=== PATIENT | female | born 1970 | race Two or more races ===

== ENCOUNTER → 2018-12-11 | Emergency (ER) | payer OTHER ==
[~2018-12-11] VITALS: Ht 157.5 cm; Wt 93.0 kg
[~2018-12-11] MED LIST: AMOX1TAB12 PO; CARAFATE1 G PO; CIPRO250 MG PO; COZAAR50 MG PO; GLUCOPHAGE XR500 MG PO; MEDROLPACK PO; NORVASC10 MG PO; PREDNISONE; PROVENTIL0.5 ML/2.5 IH; TUSSI PRES-B L120 M1 PO
== END | disposition left against medical advice (07) ==
LOC: ER 19:13
DX: Z53.20 Procedure and treatment not carried out because of patient's decision for unspecified reasons (principal)

== ENCOUNTER 2018-12-25 10:24 | Emergency (ER) | payer OTHER ==
[~2018-12-25] VITALS: Ht 167.6 cm; Wt 114.3 kg
== END 2018-12-25 14:14 | disposition home or self-care (01) ==
LOC: ER 10:24
DX: R42 Dizziness and giddiness (principal); R07.89 Other chest pain

== ENCOUNTER 2019-03-19 15:25 | Emergency (ER) | payer OTHER ==
[~2019-03-19] VITALS: Ht 167.6 cm; Wt 120.2 kg
[2019-03-19] MEDS ORDERED: ASPIRIN81 M1 (15:44)
== END 2019-03-19 19:36 | disposition home or self-care (01) ==
LOC: ER 15:25
DX: K52.9 Noninfective gastroenteritis and colitis, unspecified (principal); R10.11 Right upper quadrant pain

== ENCOUNTER 2019-05-29 11:33 | Outpatient (CLI) | payer OTHER ==
[~2019-05-29 11:33] MED LIST changes: +ASPIRIN81 M1
== END 2019-05-29 11:38 | disposition home or self-care (01) ==
LOC: MRI 11:33
DX: K50.80 Crohn's disease of both small and large intestine without complications (principal); R16.1 Splenomegaly, not elsewhere classified
CPT/HCPCS: 74181

== ENCOUNTER 2019-06-26 12:27 | Emergency (ER) | payer OTHER ==
[~2019-06-26] VITALS: Ht 167.6 cm; Wt 121.6 kg
[2019-06-26] MEDS ORDERED: VALSARTAN40 MG (13:02)
[2019-06-26] MEDS ORDERED: ULTRACET PO (14:55)
== END 2019-06-26 15:12 | disposition home or self-care (01) ==
LOC: ER 12:27
DX: R10.84 Generalized abdominal pain (principal)

== ENCOUNTER 2019-10-18 15:32 | Emergency (ER) | payer OTHER ==
[~2019-10-18] VITALS: Ht 167.6 cm; Wt 120.2 kg
[~2019-10-18 15:32] MED LIST changes: +ULTRACET PO; +VALSARTAN40 MG
[2019-10-18] MEDS ORDERED: XARELTO1 EACH (16:17)
== END 2019-10-18 20:05 | disposition home or self-care (01) ==
LOC: ER 15:32
DX: K52.9 Noninfective gastroenteritis and colitis, unspecified (principal)

== ENCOUNTER 2019-11-16 11:00 | Emergency (ER) | payer OTHER ==
[~2019-11-16] VITALS: Ht 170.2 cm; Wt 113.4 kg
[~2019-11-16 11:00] MED LIST changes: +XARELTO1 EACH
== END 2019-11-16 12:07 | disposition home or self-care (01) ==
LOC: ER 11:00
DX: J06.9 Acute upper respiratory infection, unspecified (principal)

== ENCOUNTER 2020-03-02 13:53 | Outpatient (CLI) | payer OTHER | END 2020-03-02 13:57 | disposition home or self-care (01) | LOC: RAD 13:53 | PROVIDERS: ATTEND General Practice | DX: R05 Cough (principal); R51 Headache; R53.81 Other malaise; I10 Essential (primary) hypertension; Z11.59 Encounter for screening for other viral diseases ==

== ENCOUNTER 2020-03-02 14:40 | Outpatient (CLI) | payer OTHER | END 2020-03-02 15:00 | disposition home or self-care (01) | LOC: LAB 14:40 | PROVIDERS: ATTEND General Practice | DX: U07.1 COVID-19 (principal); J11.1 Influenza due to unidentified influenza virus with other respiratory manifestations; R51 Headache; R53.81 Other malaise; Z11.59 Encounter for screening for other viral diseases ==

== ENCOUNTER 2020-10-14 08:35 | Outpatient (CLI) | payer OTHER | END 2020-10-14 08:55 | disposition home or self-care (01) | LOC: TOM 08:35 | PROVIDERS: ATTEND Internal Medicine Hematology & Oncology | DX: I81 Portal vein thrombosis (principal); I87.2 Venous insufficiency (chronic) (peripheral) ==

== ENCOUNTER 2021-07-12 10:22 | Emergency (ER) | payer OTHER ==
[~2021-07-12] VITALS: Ht 167.6 cm; Wt 122.5 kg
[2021-07-12] MEDS ORDERED: 8 HOUR650 MG PO (17:31)
[2021-07-12] MEDS ORDERED: CIPROFLOXACIN500 MG PO (17:31)
[2021-07-12] MEDS ORDERED: INTESTINEX680 M1 PO (17:31)
[2021-07-12] MEDS ORDERED: LEVSIN0.125 MG PO (17:31)
[2021-07-12] MEDS ORDERED: PROTONIX20 MG PO (17:31)
[2021-07-12] MEDS ORDERED: PEPCID AC20 MG PO (17:31)
[2021-07-12] MEDS ORDERED: METRONIDAZOLE500 MG PO (17:31)
== END 2021-07-12 17:35 | disposition home or self-care (01) ==
LOC: ER 10:22
DX: K57.92 Diverticulitis of intestine, part unspecified, without perforation or abscess without bleeding (principal); R10.9 Unspecified abdominal pain

== ENCOUNTER 2022-02-23 09:59 | Emergency (ER) | payer OTHER ==
[~2022-02-23] VITALS: Ht 167.6 cm; Wt 123.4 kg
[~2022-02-23 09:59] MED LIST changes: +8 HOUR650 MG PO; +CIPROFLOXACIN500 MG PO; +INTESTINEX680 M1 PO; +LEVSIN0.125 MG PO; +METRONIDAZOLE500 MG PO; +PEPCID AC20 MG PO; +PROTONIX20 MG PO
[2022-02-23] MEDS ORDERED: IPRAT-ALBUT 0.5-3 ML IH (15:54)
[2022-02-23] MEDS ORDERED: PEPCID AC20 MG PO (15:54)
[2022-02-23] MEDS ORDERED: BENZONATATE200 M1 PO (15:54)
[2022-02-23] MEDS ORDERED: OSEL75CA PO (15:54)
[2022-02-23] MEDS ORDERED: BUDESONIDE0.5 MG/2 M IH (15:54)
[2022-02-23] MEDS ORDERED: MOLNUPIRAVIR (200 MG PO ×2 (15:54→15:55)
== END 2022-02-23 16:27 ==
LOC: ER 09:59
DX: U07.1 COVID-19 (principal); J45.901 Unspecified asthma with (acute) exacerbation; J10.1 Influenza due to other identified influenza virus with other respiratory manifestations; Z91.013 Allergy to seafood

== ENCOUNTER 2022-02-23 16:46 | Outpatient (CLI) | payer OTHER ==
[~2022-02-23 16:46] MED LIST changes: +BENZONATATE200 M1 PO; +BUDESONIDE0.5 MG/2 M IH; +IPRAT-ALBUT 0.5-3 ML IH; +MOLNUPIRAVIR (200 MG PO; +OSEL75CA PO
== END 2022-02-23 17:46 | disposition home or self-care (01) ==
LOC: ASH CLINIC 16:46
PROVIDERS: ATTEND General Practice
DX: U07.1 COVID-19 (principal)

== ENCOUNTER 2022-06-08 13:20 | Emergency (ER) | payer OTHER ==
[~2022-06-08] VITALS: Ht 167.6 cm; Wt 123.4 kg
== END 2022-06-08 18:02 | disposition left against medical advice (07) ==
LOC: ER 13:20
DX: K57.32 Diverticulitis of large intestine without perforation or abscess without bleeding (principal); E11.9 Type 2 diabetes mellitus without complications; Z79.84 Long term (current) use of oral hypoglycemic drugs; Z91.013 Allergy to seafood

== ENCOUNTER 2022-08-01 10:38 | Emergency (ER) | payer OTHER ==
[~2022-08-01] VITALS: Ht 167.6 cm; Wt 123.4 kg
[2022-08-01] MEDS ORDERED: KETO10TA2 PO (11:52)
[2022-08-01] MEDS ORDERED: NORFLEX100MG PO (11:52)
[2022-08-01] MEDS ORDERED: CIPRO500 MG PO (13:26)
[2022-08-01] MEDS ORDERED: OSEL75CA PO (13:26)
[2022-08-01] MEDS ORDERED: CLARITIN10 M1 PO (13:26)
[2022-08-01] MEDS ORDERED: PANTOPRAZOLE SO40 MG PO (13:26)
== END 2022-08-01 13:29 | disposition home or self-care (01) ==
LOC: ER 10:38
DX: J10.1 Influenza due to other identified influenza virus with other respiratory manifestations (principal); Z20.828 Contact with and (suspected) exposure to other viral communicable diseases

== ENCOUNTER 2022-09-08 15:49 | Emergency (ER) | payer OTHER ==
[~2022-09-08] VITALS: Ht 170.2 cm; Wt 111.1 kg
[~2022-09-08 15:49] MED LIST changes: +CIPRO500 MG PO; +CLARITIN10 M1 PO; +KETO10TA2 PO; +NORFLEX100MG PO; +PANTOPRAZOLE SO40 MG PO
[2022-09-08] MEDS ORDERED: AUGMENTIN XR 11 EACH PO (21:56)
== END 2022-09-08 22:21 | disposition home or self-care (01) ==
LOC: ER 15:49
DX: K57.92 Diverticulitis of intestine, part unspecified, without perforation or abscess without bleeding (principal); Z87.19 Personal history of other diseases of the digestive system; Z91.013 Allergy to seafood

== ENCOUNTER 2022-12-30 11:49 | Emergency (ER) | payer OTHER ==
[~2022-12-30] VITALS: Ht 167.6 cm; Wt 123.4 kg
[~2022-12-30 11:49] MED LIST changes: +AUGMENTIN XR 11 EACH PO
[2022-12-30] MEDS ORDERED: PRILOSEC OTC20 MG (12:37)
[2022-12-30] MEDS ORDERED: CIPRO500 MG PO (18:48)
[2022-12-30] MEDS ORDERED: PEPCID AC20 MG PO (18:48)
[2022-12-30] MEDS ORDERED: METRONIDAZOLE500 MG PO (18:48)
== END 2022-12-30 19:55 | disposition home or self-care (01) ==
LOC: ER 11:49
DX: R10.9 Unspecified abdominal pain (principal); K62.5 Hemorrhage of anus and rectum; K21.9 Gastro-esophageal reflux disease without esophagitis; I10 Essential (primary) hypertension; K57.32 Diverticulitis of large intestine without perforation or abscess without bleeding

== ENCOUNTER 2023-09-24 16:28 | Emergency (ER) | payer OTHER ==
[~2023-09-24] VITALS: Ht 167.6 cm; Wt 124.7 kg
[~2023-09-24 16:28] MED LIST changes: +PRILOSEC OTC20 MG
[2023-09-24] MEDS ORDERED: AMLODIPINE BESY10 MG (16:38)
[2023-09-24 18:53] LABS: HEMATOCRIT 36.5 % (36.0-45.00); HEMOGLOBIN 11.7 g/dL (12.0-15.00); MEAN CELL VOLUME 78.7 fL (80.00-100.00); MEAN CORPUSCULAR HEMOGLOBIN 25.3 pg (27.00-32.0); MEAN CORPUSCULAR HGB CONC 32.2 g/dl (32.0-36.0); PLATELET COUNT 588 K/uL (150-450); RED BLOOD COUNT 4.64 M/uL (4.00-6.00); RED CELL DISTRIBUTION WIDTH 17.5 % (11.5-14.5)
[2023-09-24 19:02] LABS: INR 1.36; PARTIAL THROMBOPLASTIN TIME 27.9 SECONDS (22.0-34.0)
[2023-09-24 19:03] LABS: CALCIUM 9.6 mg/dL (8.5-10.1); CREATININE SERUM 0.66 mg/dL (0.55-1.02); GFR 94.42; POTASSIUM 3.89 mEq/L (3.5-5.1)
== END 2023-09-24 21:09 | disposition left against medical advice (07) ==
LOC: ER 16:29
PROVIDERS: General Practice
DX: S09.8XXA Other specified injuries of head, initial encounter (principal); W18.39XA Other fall on same level, initial encounter; Y93.89 Activity, other specified; Y92.018 Other place in single-family (private) house as the place of occurrence of the external cause; Z91.013 Allergy to seafood; Z20.822 Contact with and (suspected) exposure to COVID-19; J32.9 Chronic sinusitis, unspecified; E11.9 Type 2 diabetes mellitus without complications; Z86.718 Personal history of other venous thrombosis and embolism
CPT/HCPCS: 36415; 70450; 72125; 99284; J2360

== ENCOUNTER 2023-10-16 10:27 | Outpatient (CLI) | payer OTHER ==
[~2023-10-16 10:27] MED LIST changes: +AMLODIPINE BESY10 MG
== END 2023-10-16 10:38 | disposition home or self-care (01) ==
LOC: TOM 10:27
PROVIDERS: ATTEND Internal Medicine Gastroenterology
DX: R10.31 Right lower quadrant pain (principal)

== ENCOUNTER 2023-12-15 11:52 | Emergency (ER) | payer OTHER ==
[~2023-12-15] VITALS: Ht 167.6 cm; Wt 125.2 kg
[2023-12-15] MEDS ORDERED: PEPCID AC20 MG PO ×2 (12:10→19:21)
[2023-12-15] MEDS ORDERED: 0.9 % SODIUM CHLORIDE 1,000 ML IV STA (12:32)
[2023-12-15] MEDS ORDERED: KETOROLAC TROMETHAMINE 30 MG VIAL IV ONE (12:45)
[2023-12-15 13:04] LABS: HEMOGLOBIN 11.4 g/dL (12.0-15.00); MEAN CORPUSCULAR HEMOGLOBIN 25.1 pg (27.00-32.0); MEAN CORPUSCULAR HGB CONC 32.6 g/dl (32.0-36.0); PLATELET COUNT 679 K/uL (150-450); RED BLOOD COUNT 4.55 M/uL (4.00-6.00); RED CELL DISTRIBUTION WIDTH 18.2 % (11.5-14.5)
[2023-12-15 13:23] LABS: CALCIUM 9.6 mg/dL (8.5-10.1); CREATININE SERUM 0.86 mg/dL (0.55-1.02); GFR 69.56; POTASSIUM 3.7 mEq/L (3.5-5.1)
[2023-12-15 14:25] LABS: URINE APPEARANCE Cloudy; URINE BILIRRUBIN Negative (NEGATIVE); URINE BLOOD Large; URINE COLOR Dark Yellow; URINE GLUCOSE Negative (NEGATIVE); URINE LEUKOCYTE Small; URINE NITRATE Negative; URINE PROTEIN 30 (NEGATIVE)
[2023-12-15 14:26] LABS: URINE BACTERIA 404.4 uL (0.0-1933); URINE EPITHELIAL CELLS 37.8 uL (0.0-38.8); URINE RBC 6024.9 uL (0.0-20.8); URINE WBC 23.4 uL (0.0-23.2)
[2023-12-15] MEDS ORDERED: FAMOTIDINE/PF 20 MG in 0.9 % SODIUM CHLORIDE 8 ML IV PUSH STA (19:17)
[2023-12-15] MEDS ORDERED: CIPRO500 MG PO (19:21)
[2023-12-15] MEDS ORDERED: DICY20TA PO (19:21)
[2023-12-15] MEDS ORDERED: METRONIDAZOLE500 MG PO (19:21)
[2023-12-15] MEDS ORDERED: CEFTRIAXONE SODIUM 1,000 MG VIAL IV ONE (19:30)
== END 2023-12-15 19:51 | disposition home or self-care (01) ==
LOC: ER 11:52
PROVIDERS: Emergency Medicine
DX: I88.0 Nonspecific mesenteric lymphadenitis (principal); K52.9 Noninfective gastroenteritis and colitis, unspecified; Z91.013 Allergy to seafood
CPT/HCPCS: 36415; 74177; Q9965

== ENCOUNTER 2024-05-11 10:52 | Inpatient (IN) | payer OTHER ==
[~2024-05-11] VITALS: Ht 167.6 cm; Wt 122.5 kg
[~2024-05-11 10:52] MED LIST changes: +DICY20TA PO; +METFORMIN HCL500 M4 PO; +VALSARTAN-HCTZ1 EAC1 PO; +XARELTO20 MG
[2024-05-11] MEDS ORDERED: 0.9 % SODIUM CHLORIDE 1,000 ML IV ONE (11:45)
[2024-05-11] MEDS ORDERED: KETOROLAC TROMETHAMINE 60 MG VIAL IM ONE ×2 (11:45→12:04)
[2024-05-11] MEDS ORDERED: ONDANSETRON HCL 2 MG/ML VIAL IV ONE (11:45)
[2024-05-11] MEDS ORDERED: FAMOtidine 10 MG/ML (4ML VIAL) IV ONE (11:45)
[2024-05-11] MEDS ORDERED: FAMOTIDINE/PF 20 MG/2 ML VIAL ONE (12:04)
[2024-05-11] MEDS ORDERED: ONDANSETRON HCL 2 MG/ML VIAL ONE (12:04)
[2024-05-11 12:33] LABS: HEMATOCRIT 33.8 % (36.0-45.00); HEMOGLOBIN 11.1 g/dL (12.0-15.00); MEAN CELL VOLUME 74.3 fL (80.00-100.00); MEAN CORPUSCULAR HEMOGLOBIN 24.4 pg (27.00-32.0); MEAN CORPUSCULAR HGB CONC 32.8 g/dl (32.0-36.0); PLATELET COUNT 706 K/uL (150-450); RED BLOOD COUNT 4.55 M/uL (4.00-6.00); RED CELL DISTRIBUTION WIDTH 18.6 % (11.5-14.5)
[2024-05-11 12:46] LABS: URINE APPEARANCE Clear; URINE BILIRRUBIN Negative (NEGATIVE); URINE BLOOD Negative; URINE COLOR Yellow; URINE GLUCOSE Negative (NEGATIVE); URINE KETONE Trace (NEGATIVE); URINE LEUKOCYTE Negative; URINE NITRATE Negative; URINE PROTEIN Negative (NEGATIVE); URINE UROBILINOGEN 0.2 E.U./dl
[2024-05-11 12:49] LABS: URINE BACTERIA 361.5 uL (0.0-1933); URINE EPITHELIAL CELLS 38.2 uL (0.0-38.8); URINE RBC 18.1 uL (0.0-20.8); URINE WBC 4.3 uL (0.0-23.2)
[2024-05-11 13:06] LABS: INR 1.05; PARTIAL THROMBOPLASTIN TIME 25.5 SECONDS (22.0-34.0); PROTHROMBIN TIME 11.4 SECONDS (9.0-11.5)
[2024-05-11 13:17] LABS: ALBUMIN 3.6 gm/dL (3.4-5.0); BILIRUBIN TOTAL 0.96 mg/dL (0.3-1.2); CALCIUM 9.1 mg/dL (8.5-10.1); CREATININE SERUM 0.73 mg/dL (0.55-1.02); GFR 84.05; GLOBULINA 4.8 G/DL (2.4-3.5); POTASSIUM 3.61 mEq/L (3.5-5.1); TOTAL PROTEIN 8.4 gm/dL (6.4-8.2)
[2024-05-11] MEDS ORDERED: DEXTROSE 5 % AND 0.9 % NACL 1,000 ML IV SCH (19:45)
[2024-05-11] MEDS ORDERED: DEXTROSE 50 % IN WATER 0.5 G/ML DISP.SYRIN IV PRN (20:00)
[2024-05-11] MEDS ORDERED: PIPERACILLIN/TAZOBACTAM SODIUM 3.375 GM in 0.9 % SODIUM CHLORIDE 100 ML IV SCH (20:00)
[2024-05-11] MEDS ORDERED: ONDANSETRON HCL 4 MG in 0.9 % SODIUM CHLORIDE 50 ML IV PRN (20:00)
[2024-05-11] MEDS ORDERED: INSULIN LISPRO 1,000 UNIT/10 ML UNITS SUBCUTANEO PRN (20:00)
[2024-05-11] MEDS ORDERED: ACETAMINOPHEN 500 MG GEL..CAP PO PRN (20:00)
[2024-05-11] MEDS ORDERED: hydrALAZINE HCL 20 MG VIAL IV PRN (20:00)
[2024-05-11] MEDS ORDERED: FAMOTIDINE/PF 20 MG in 0.9 % SODIUM CHLORIDE 8 ML IV PUSH SCH (21:00)
[2024-05-12] MEDS ORDERED: MEPERIDINE HCL/PF 25 MG/ML VIAL IM SCH
[2024-05-12 00:28] VITALS: BP 107/69
[2024-05-12 01:42] VITALS: BP 107/69; O2SAT 97
[2024-05-12 04:16] VITALS: BP 135/68; O2SAT 98
[2024-05-12 08:00] VITALS: BP 122/81; O2SAT 96
[2024-05-12 08:40] LABS: HEMATOCRIT 32.8 % (36.0-45.00); HEMOGLOBIN 10.2 g/dL (12.0-15.00); MEAN CELL VOLUME 74.7 fL (80.00-100.00); MEAN CORPUSCULAR HEMOGLOBIN 23.3 pg (27.00-32.0); MEAN CORPUSCULAR HGB CONC 31.1 g/dl (32.0-36.0); PLATELET COUNT 684 K/uL (150-450); RED BLOOD COUNT 4.39 M/uL (4.00-6.00); RED CELL DISTRIBUTION WIDTH 18.5 % (11.5-14.5)
[2024-05-12 08:58] LABS: ALBUMIN 3.3 gm/dL (3.4-5.0); BILIRUBIN TOTAL 1.11 mg/dL (0.3-1.2); BILIRUBIN,CONJUGATED 0.2 mg/dL (0.0-0.2); BILIRUBIN,UNCONJUGATED 0.91 mg/dL (0.0-0.6); CALCIUM 8.9 mg/dL (8.5-10.1); CHOL HDL RATIO 3.8 (0-5.0); CREATININE SERUM 0.76 mg/dL (0.55-1.02); GFR 80.23; INR 1.02; PARTIAL THROMBOPLASTIN TIME 26.6 SECONDS (22.0-34.0); POTASSIUM 4.1 mEq/L (3.5-5.1); PROTHROMBIN TIME 11.1 SECONDS (9.0-11.5); TOTAL PROTEIN 7.3 gm/dL (6.4-8.2)
[2024-05-12 09:00] LABS: C-REACTIVE PROTEIN 1.27 MG/DL (0.00-0.29)
[2024-05-12] MEDS ORDERED: HCTZ 12.5 MG PO SCH (09:00)
[2024-05-12] MEDS ORDERED: RIVAROXABAN 20 MG TABLET PO SCH (09:00)
[2024-05-12] MEDS ORDERED: VALSARTAN 160 MG PO SCH (09:00)
[2024-05-12] MEDS ORDERED: AMLODIPINE BESYLATE 10 MG TABLET PO SCH (09:00)
[2024-05-12 10:16] LABS: ERYTHROCYTE SEDIMENTATION RATE 81 mm/hr
[2024-05-12 12:18] LABS: URINE APPEARANCE Clear; URINE BILIRRUBIN Negative (NEGATIVE); URINE BLOOD Negative; URINE COLOR Yellow; URINE GLUCOSE Negative (NEGATIVE); URINE KETONE Negative (NEGATIVE); URINE LEUKOCYTE Negative; URINE NITRATE Negative; URINE PROTEIN Negative (NEGATIVE); URINE UROBILINOGEN 0.2 E.U./dl
[2024-05-12 12:22] LABS: URINE BACTERIA 127.2 uL (0.0-1933); URINE EPITHELIAL CELLS 11.5 uL (0.0-38.8); URINE RBC 3.2 uL (0.0-20.8)
[2024-05-12 16:00] VITALS: BP 104/68; O2SAT 99
[2024-05-13 00:16] VITALS: BP 127/71; O2SAT 97
[2024-05-13 08:00] VITALS: BP 110/71; O2SAT 98
[2024-05-13] MEDS ORDERED: VALSARTAN HCTZ PO SCH (09:00)
[2024-05-13] MEDS ORDERED: SODIUM CL 0.9% 50 ML IV.SOLN IV ONE (11:00)
[2024-05-13 16:37] VITALS: BP 137/85; O2SAT 98
[2024-05-14] VITALS: BP 115/82; O2SAT 100
[2024-05-14 07:53] VITALS: BP 130/76; O2SAT 96
[2024-05-14 08:57] LABS: INR 1.04; PARTIAL THROMBOPLASTIN TIME 26.8 SECONDS (22.0-34.0); PROTHROMBIN TIME 11.3 SECONDS (9.0-11.5)
== END 2024-05-14 12:28 | disposition home or self-care (01) | DRG 391 ==
LOC: ER 10:54 → MEDJ 20:19 → SEC-K 20:19 → MEDJ 20:45 → SURH 05-12 02:47
PROVIDERS: General Practice; ADMIT Internal Medicine; ATTEND Internal Medicine
PROC: BW21YZZ Computerized Tomography (CT Scan) of Abdomen and Pelvis using Other Contrast (ICD-10-PCS; principal; 2024-05-11)
DX: K57.32 Diverticulitis of large intestine without perforation or abscess without bleeding (principal); I81 Portal vein thrombosis; I10 Essential (primary) hypertension; E11.9 Type 2 diabetes mellitus without complications; Z79.4 Long term (current) use of insulin

== ENCOUNTER 2024-05-14 11:00 | Inpatient (IN) | payer OTHER ==
[~2024-05-14] VITALS: Ht 167.6 cm; Wt 122.5 kg
[2024-05-14 14:50] VITALS: BP 150/54
[2024-05-22] MEDS ORDERED: METRONIDAZOLE/SODIUM CHLORIDE 500 MG/100 ML PIGGYBACK IV ONE (12:40)
[2024-05-22] MEDS ORDERED: CEFTRIAXONE SODIUM 2,000 MG VIAL ONE (12:40)
[2024-05-22] MEDS ORDERED: SUGAMMADEX SODIUM 200 MG/2 ML VIAL IV ONE (14:45)
[2024-05-22] MEDS ORDERED: LIDOCAINE HCL 1%/EPINEPHRINE 20ML VIAL IJ ONE (15:00)
[2024-05-22] MEDS ORDERED: BUPIVACAINE HCL 30 ML VIAL IJ ONE (15:00)
[2024-05-22] MEDS ORDERED: OxyCODONE HCL 5 MG TABLET (ROXICODONE) PO PRN (16:45)
[2024-05-22] MEDS ORDERED: MORPHINE SULFATE 4 MG/ML CARTRIDGE IV PRN (16:45)
[2024-05-22] MEDS ORDERED: ONDANSETRON HCL 2 MG/ML VIAL IV PRN (16:45)
[2024-05-22] MEDS ORDERED: DEXTROSE 50 % IN WATER 0.5 G/ML DISP.SYRIN IV PRN (16:45)
[2024-05-22] MEDS ORDERED: RINGERS SOLUTION,LACTATED 1,000 ML IV SCH (16:45)
[2024-05-22] MEDS ORDERED: ONDANSETRON HCL 2 MG/ML VIAL ONE (18:05)
[2024-05-22 19:00] VITALS: BP 153/82; O2SAT 96
[2024-05-22 19:24] LABS: HEMATOCRIT 32.7 % (36.0-45.00); HEMOGLOBIN 10.6 g/dL (12.0-15.00); MEAN CELL VOLUME 73.4 fL (80.00-100.00); MEAN CORPUSCULAR HEMOGLOBIN 23.8 pg (27.00-32.0); MEAN CORPUSCULAR HGB CONC 32.4 g/dl (32.0-36.0); PLATELET COUNT 750 K/uL (150-450); RED BLOOD COUNT 4.45 M/uL (4.00-6.00); RED CELL DISTRIBUTION WIDTH 18.7 % (11.5-14.5)
[2024-05-22 19:31] LABS: ALBUMIN 3.4 gm/dL (3.4-5.0); CALCIUM 9.2 mg/dL (8.5-10.1); CREATININE SERUM 0.77 mg/dL (0.55-1.02); GFR 79.03; PHOSPHOROUS 3.6 mg/dL (2.5-4.9); POTASSIUM 3.72 mEq/L (3.5-5.1)
[2024-05-22] MEDS ORDERED: ACETAMINOPHEN 500 MG GEL..CAP PO SCH (20:00)
[2024-05-22] MEDS ORDERED: CIPROFLOXACIN IN 5 % DEXTROSE 400 MG/200 ML PIGGYBAG IV SCH (21:00)
[2024-05-22] MEDS ORDERED: FAMOTIDINE/PF 20 MG/2 ML VIAL IV PUSH SCH (21:00)
[2024-05-22] MEDS ORDERED: CELECOXIB 200 MG CAPSULE PO SCH (21:00)
[2024-05-22 23:55] VITALS: BP 152/86; O2SAT 96
[2024-05-23] MEDS ORDERED: GABAPENTIN 300 MG CAPSULE PO SCH (01:00)
[2024-05-23] MEDS ORDERED: METRONIDAZOLE/SODIUM CHLORIDE 500 MG/100 ML PIGGYBACK IV SCH (01:00)
[2024-05-23 06:10] LABS: HEMATOCRIT 30.1 % (36.0-45.00); MEAN CELL VOLUME 74.1 fL (80.00-100.00); MEAN CORPUSCULAR HEMOGLOBIN 24.5 pg (27.00-32.0); MEAN CORPUSCULAR HGB CONC 33.1 g/dl (32.0-36.0); PLATELET COUNT 640 K/uL (150-450); RED BLOOD COUNT 4.06 M/uL (4.00-6.00); RED CELL DISTRIBUTION WIDTH 18.4 % (11.5-14.5)
[2024-05-23 06:39] LABS: CALCIUM 8.8 mg/dL (8.5-10.1); CREATININE SERUM 0.59 mg/dL (0.55-1.02); GFR 107.46; MAGNESIUM 2.2 mg/dL (1.8-2.4); PHOSPHOROUS 3.1 mg/dL (2.5-4.9); POTASSIUM 4.09 mEq/L (3.5-5.1)
[2024-05-23 08:38] VITALS: BP 147/81; O2SAT 96
[2024-05-23] MEDS ORDERED: LACTULOSE 20 G/30 ML BLIST.PACK PO SCH (09:00)
[2024-05-23] MEDS ORDERED: HYOSCYAMINE SULFATE 0.125 MG TAB.SUBL SL SCH (09:00)
[2024-05-23 16:50] VITALS: BP 100/61; O2SAT 98
[2024-05-23] MEDS ORDERED: POLYETHYLENE GLYCOL 3350 17 GM BLIST.PACK PO SCH (17:00)
[2024-05-23] MEDS ORDERED: ENOXAPARIN SODIUM 40 MG/0.4 ML SYRINGE SUBCUTANEO SCH (17:00)
[2024-05-24] VITALS: BP 99/64; O2SAT 96
[2024-05-24] MEDS ORDERED: ENOXAPARIN SODIUM 40 MG/0.4 ML SYRINGE SUBCUTANEO SCH (09:00)
[2024-05-24 09:23] VITALS: BP 107/71; O2SAT 97
[2024-05-24 16:02] VITALS: BP 108/73; O2SAT 98
[2024-05-25] VITALS: BP 147/76; O2SAT 96
[2024-05-25] MEDS ORDERED: OxyCODONE HCL 5 MG TABLET (ROXICODONE) PO PRN (02:00)
[2024-05-25 09:11] VITALS: BP 130/61; O2SAT 98
[2024-05-25 09:30] LABS: HEMATOCRIT 28.5 % (36.0-45.00); MEAN CELL VOLUME 73.9 fL (80.00-100.00); MEAN CORPUSCULAR HGB CONC 31.9 g/dl (32.0-36.0); RED BLOOD COUNT 3.86 M/uL (4.00-6.00); RED CELL DISTRIBUTION WIDTH 18.9 % (11.5-14.5)
[2024-05-25 09:32] LABS: HEMOGLOBIN 9.1 g/dL (12.0-15.00); MEAN CORPUSCULAR HEMOGLOBIN 23.5 pg (27.00-32.0); PLATELET COUNT 572 K/uL (150-450)
[2024-05-25 09:37] LABS: ALBUMIN 2.7 gm/dL (3.4-5.0); BILIRUBIN TOTAL 0.55 mg/dL (0.3-1.2); CALCIUM 8.3 mg/dL (8.5-10.1); CREATININE SERUM 0.54 mg/dL (0.55-1.02); GFR 119.02; GLOBULINA 3.6 G/DL (2.4-3.5); MAGNESIUM 2.2 mg/dL (1.8-2.4); PHOSPHOROUS 2.5 mg/dL (2.5-4.9); POTASSIUM 3.86 mEq/L (3.5-5.1); TOTAL PROTEIN 6.3 gm/dL (6.4-8.2)
[2024-05-25] MEDS ORDERED: NITROGLYCERIN 0.4 MG TAB.SUBL SL STA (09:47)
[2024-05-25] MEDS ORDERED: CLOPIDOGREL BISULFATE 75 MG TABLET PO STA (10:19)
[2024-05-25] MEDS ORDERED: ASPIRIN 81 MG TABLET.EC PO STA (10:19)
[2024-05-25] MEDS ORDERED: ATORVASTATIN CALCIUM 40 MG TABLET PO STA (10:20)
[2024-05-25] MEDS ORDERED: METOPROLOL SUCCINATE 25 MG TAB.SR.24H PO SCH (12:00)
[2024-05-25 16:00] VITALS: BP 145/69; O2SAT 97
[2024-05-26 01:00] VITALS: BP 147/76; O2SAT 95
[2024-05-26 08:00] VITALS: BP 150/88; O2SAT 95
[2024-05-26 16:11] VITALS: BP 137/84; O2SAT 97
[2024-05-27] VITALS: BP 132/80; O2SAT 97
[2024-05-27 10:35] VITALS: BP 104/62; O2SAT 95
[2024-05-27 16:27] VITALS: BP 139/71; O2SAT 95
[2024-05-28 00:41] VITALS: BP 108/69; O2SAT 95
[2024-05-28 10:31] VITALS: BP 123/82; O2SAT 98
== END 2024-05-28 13:12 | disposition home or self-care (01) | DRG 330 ==
LOC: SURH 05-22 07:00 → O/R 05-22 09:54 → SURH 05-22 11:00 → SURG 05-22 17:22 → SURH 05-23 11:15
PROVIDERS: Surgery; ADMIT Colon & Rectal Surgery; ATTEND Colon & Rectal Surgery
PROC: 0DBP4ZZ Excision of Rectum, Percutaneous Endoscopic Approach (ICD-10-PCS; 2024-05-22)
PROC: 0TQB4ZZ Repair Bladder, Percutaneous Endoscopic Approach (ICD-10-PCS; 2024-05-22)
PROC: 0DUU47Z Supplement Omentum with Autologous Tissue Substitute, Percutaneous Endoscopic Approach (ICD-10-PCS; 2024-05-22)
PROC: 0DJD8ZZ Inspection of Lower Intestinal Tract, Via Natural or Artificial Opening Endoscopic (ICD-10-PCS; 2024-05-22)
PROC: 0DTN4ZZ Resection of Sigmoid Colon, Percutaneous Endoscopic Approach (ICD-10-PCS; principal; 2024-05-22 07:00)
PROC: BW2GYZZ Computerized Tomography (CT Scan) of Pelvic Region using Other Contrast (ICD-10-PCS; 2024-05-24)
PROC: 4A12X4Z Monitoring of Cardiac Electrical Activity, External Approach (ICD-10-PCS; 2024-05-25)
PROC: B246ZZZ Ultrasonography of Right and Left Heart (ICD-10-PCS; 2024-05-27)
DX: K57.20 Diverticulitis of large intestine with perforation and abscess without bleeding (principal); N32.1 Vesicointestinal fistula; K66.0 Peritoneal adhesions (postprocedural) (postinfection); R07.89 Other chest pain; I10 Essential (primary) hypertension

== ENCOUNTER 2024-07-10 12:19 | Outpatient (CLI) | payer OTHER | END 2024-07-10 12:21 | disposition home or self-care (01) | LOC: TOM 12:19 | PROVIDERS: ATTEND Internal Medicine | DX: K42.9 Umbilical hernia without obstruction or gangrene (principal); R10.33 Periumbilical pain ==

== ENCOUNTER 2024-09-11 09:52 | Emergency (ER) | payer OTHER ==
[~2024-09-11] VITALS: Ht 167.6 cm; Wt 113.4 kg
[2024-09-11 14:34] LABS: HEMATOCRIT 34.7 % (36.0-45.00); HEMOGLOBIN 10.8 g/dL (12.0-15.00); MEAN CELL VOLUME 70.8 fL (80.00-100.00); MEAN CORPUSCULAR HEMOGLOBIN 22.1 pg (27.00-32.0); MEAN CORPUSCULAR HGB CONC 31.2 g/dl (32.0-36.0); RED CELL DISTRIBUTION WIDTH 20.9 % (11.5-14.5)
[2024-09-11 14:50] LABS: PLATELET COUNT 693 K/uL (150-450)
== END 2024-09-11 15:22 | disposition home or self-care (01) ==
LOC: ER 09:55
PROVIDERS: General Practice
DX: J10.1 Influenza due to other identified influenza virus with other respiratory manifestations (principal); Z20.822 Contact with and (suspected) exposure to COVID-19; Z91.040 Latex allergy status; Z91.013 Allergy to seafood

== ENCOUNTER 2024-11-28 14:30 | Emergency (ER) | payer OTHER ==
[~2024-11-28] VITALS: Ht 167.6 cm; Wt 120.2 kg
[2024-11-28] MEDS ORDERED: SUCRALFATE 1 G TABLET PO ONE (16:30)
[2024-11-28] MEDS ORDERED: PANTOPRAZOLE SODIUM 40 MG/VIAL VIAL IV PUSH ONE (16:30)
[2024-11-28] MEDS ORDERED: ONDANSETRON HCL 2 MG/ML VIAL IV ONE (16:30)
[2024-11-28] MEDS ORDERED: ONDANSETRON HCL 2 MG/ML VIAL ONE (16:43)
[2024-11-28] MEDS ORDERED: 0.9 % SODIUM CHLORIDE 1,000 ML IV SCH (16:45)
[2024-11-28 17:49] LABS: HEMATOCRIT 33.9 % (36.0-45.00); HEMOGLOBIN 10.4 g/dL (12.0-15.00); MEAN CELL VOLUME 70.1 fL (80.00-100.00); MEAN CORPUSCULAR HEMOGLOBIN 21.5 pg (27.00-32.0); MEAN CORPUSCULAR HGB CONC 30.7 g/dl (32.0-36.0); PLATELET COUNT 845 K/uL (150-450); RED BLOOD COUNT 4.83 M/uL (4.00-6.00); RED CELL DISTRIBUTION WIDTH 18.6 % (11.5-14.5)
[2024-11-28 17:54] LABS: ALBUMIN 3.7 gm/dL (3.4-5.0); BILIRUBIN TOTAL 0.69 mg/dL (0.3-1.2); CALCIUM 9.7 mg/dL (8.5-10.1); CREATININE SERUM 0.72 mg/dL (0.55-1.02); GFR 85.06; GLOBULINA 5.1 G/DL (2.4-3.5); POTASSIUM 3.44 mEq/L (3.5-5.1); TOTAL PROTEIN 8.8 gm/dL (6.4-8.2)
[2024-11-28] MEDS ORDERED: CARAFATE1 GM PO (19:00)
[2024-11-28] MEDS ORDERED: PROTONIX20 MG PO (19:00)
== END 2024-11-28 19:16 | disposition home or self-care (01) ==
LOC: ER 14:31
PROVIDERS: General Practice
DX: K29.70 Gastritis, unspecified, without bleeding (principal); K62.5 Hemorrhage of anus and rectum; I10 Essential (primary) hypertension; E11.9 Type 2 diabetes mellitus without complications; Z79.84 Long term (current) use of oral hypoglycemic drugs; Z91.040 Latex allergy status; Z91.013 Allergy to seafood